=== PATIENT | female | born 1950 | race Caucasian/White ===

== ENCOUNTER 2023-08-20 08:57 | Outpatient (OUT) | payer MEDICARE, SELFPAY ==
[2023-08-20 09:41] LABS: Basophils Absolute Auto 0.1 10^3/uL (0.0-0.1); Eosinophils Absolute Auto 0.5 10^3/uL (0.0-0.7); Hematocrit 37.9 % (36.0-48.0); Hemoglobin 11.6 g/dL (12.0-16.0); Immature Granulocytes Abs Auto 0.02 10^3/uL (0.00-0.03); Immature Granulocytes Pct Auto 0.3 % (0.0-0.5); Lymphocytes Absolute Auto 2.1 10^3/uL (1.2-3.8); Lymphocytes Percent Auto 31.4 % (20.5-60.0); Mean Corpuscular HGB Conc 30.6 g/dL (29.9-35.2); Mean Corpuscular Volume 101.3 fL (81.0-99.0); Mean Platelet Volume 10.4 fL (9.5-13.5); Monocytes Absolute Auto 0.7 10^3/uL (0.3-0.8); Monocytes Percent Auto 10.6 % (1.7-12.0); Neutrophils Absolute Auto 3.3 10^3/uL (1.4-6.5); Neutrophils Percent Auto 49.7 % (43.0-75.0); Platelet Count 226 10^3/uL (150-450); Red Blood Count 3.74 10^6/uL (4.20-5.40); White Blood Count 6.7 10^3/uL (4.0-11.0)
[2023-08-20 10:06] LABS: Estimated Average Glucose 117 mg/dL; Glycohemoglobin A1C 5.7 % (4.5-6.2)
[2023-08-20 10:29] LABS: Alanine Aminotransferase 21 U/L (14-59); Albumin Globulin Ratio 1.4; Albumin Level 4.2 g/dL (3.4-5.0); Alkaline Phosphatase 80 U/L (46-116); Anion Gap 14.5; Aspartate Amino Transferase 15 U/L (15-37); BUN Creatinine Ratio 23.7; Bilirubin Total 0.5 mg/dL (0.2-1.0); Calcium 9.3 mg/dL (8.5-10.1); Carbon Dioxide 28.1 mmol/L (21.0-32.0); Chloride 104 mmol/L (98-107); Chol HDL Ratio 1.6; Cholesterol 180 mg/dL (<=200); Estimated GFR (African America >60 (>=60); Estimated GFR (Non-African Ame >60 (>=60); Free T3 2.61 pg/mL (2.18-3.98); Glucose 96 mg/dL (74-106); HDL Cholesterol 112 mg/dL (40-60); Potassium 4.6 mmol/L (3.5-5.1); Sodium 142 mmol/L (136-145); Thyroid Stimulating Hormone 2.636 uIU/mL (0.358-3.740); Total Protein 7.2 g/dL (6.4-8.2); Triglycerides 39 mg/dL (<=150); VLDL CHOLESTEROL 7.8 mg/dL
== END 2023-08-20 08:58 | disposition home or self-care (01) ==
LOC: LAB 09:08
PROVIDERS: PCP Family Medicine; Visit Provider Family Medicine
DX: K91.1 Postgastric surgery syndromes (principal); K22.4 Dyskinesia of esophagus; E78.5 Hyperlipidemia, unspecified; R73.09 Other abnormal glucose; Z12.12 Encounter for screening for malignant neoplasm of rectum; D64.9 Anemia, unspecified; E55.9 Vitamin D deficiency, unspecified; R89.9 Unspecified abnormal finding in specimens from other organs, systems and tissues
CPT/HCPCS: 36415; 80053; 80061; 82306; 82607; 82746; 83036; 83540; 84436; 84443; 84481; 85025

== ENCOUNTER 2023-08-31 12:28 | Outpatient (REF) | payer MEDICARE, SELFPAY ==
[2023-08-31 15:11] LABS: Occult Blood Negative
== END 2023-08-31 12:29 | disposition home or self-care (01) ==
LOC: LAB 12:28
PROVIDERS: PCP Family Medicine; Visit Provider Family Medicine
DX: K91.1 Postgastric surgery syndromes (principal); K22.4 Dyskinesia of esophagus; E78.5 Hyperlipidemia, unspecified; R73.09 Other abnormal glucose; Z12.12 Encounter for screening for malignant neoplasm of rectum; D64.9 Anemia, unspecified; E55.9 Vitamin D deficiency, unspecified
CPT/HCPCS: G0328

== ENCOUNTER 2024-06-20 07:42 | Outpatient (OUT) | payer MEDICARE, SELFPAY ==
--- OUTSIDE RECORDS SUMMARY | 2024-06-20 07:46 | XMS_ITS | CCD ---
Author Organization [facility] Care Team Providers Care Senior Advocate Name Role Phone DR JAYLON HUMMEL Attending Unavailable KARTHIKY, DR IYER Consulting Unavailable KARTHIKY, DR IYER Primary Care Unavailable SHAHEED, DR IYER Admitting Unavailable SHAHEED, DR IYER Attending Unavailable SHAHEED, DR IYER Consulting Unavailable SHAHEED, DR IYER Primary Care Unavailable KARTHIKY, DR IYER Admitting Unavailable HOY, DR IYER Consulting Unavailable KARTHIKY, DR IYER Primary Care Unavailable SHAHEED, DR IYER Admitting Unavailable SHAHEED, DR IYER Attending Unavailable Allergies Allergy Classification Reported Allergen(s) Allergy Type Date of Onset Reaction(s) Facility (1 source) Latex Drug allergy (disorder) [facility] Repository Problems Active Problems Problem Classification Problem Date Documented Da te Episodic/Chronic Unclassified (3 sources) CONTACT W/AND (SUSP) EXPOS COVID-19; Translations: [CONTACT W/AND (SUSP) EXPOS COVID-19] Onset: 07-16-2021 Past or Other Problems Problem Classification Problem Date Documented Da te Episodic/Chronic Acute bronchitis (1 source) Acute bronchitis, unspecified; Translations: [ACUTE BRONCHITIS UNSPECIFIED] Onset: 02-21-2021 Episodic Immunizations and screening for infectious disease (4 sources) Contact with and (suspected) exposure to other viral communicable diseases; Translations: [CONTCT EXPS OTH VIRL COMMUNICABL DZ] Onset: 07-30-2020 Episodic Unclassified (1 source) CONTACT W/AND (SUSP) EXPOS COVID-19; Translations: [CONTACT W/AND (SUSP) EXPOS COVID-19] Onset: 07-12-2021 Results Test Name Value Interpretation Reference Range Facil ity Covid-19 PCR (CVDTB)on SARS-CoV-2 (COVID-19) RNA STACEY+probe Ql (Unsp spec) Not detected Normal NOT DETECTED [facility] Comment on above: Result Comment: This test is not yet venice roved or cleared by the [place] FDA. When there are no FDA-approved or cleared tests available, and other criteria are met, FDA can make tests available under an emergency access mechanism called an Emergency Use Authorization (EUA). The EUA for this test is supported by the [employer] Consultant of Health and Human Service's (HHS's) declaration that circumstances exist to justify the emergency use of in vitro diagnostics for the detection and/or diagnosis of the virus that causes COVID-19. This EUA will remain in effect (meaning this test can be used) for the duration of the COVID-19 declaration justifying emergency of IVDs, unless it is terminated or revoked by FDA (after which the test may no longer be used). When diagnostic testing is negative, the possibility of a false negative should be considered in the context of a patient's recent exposures and the presence of clinical signs and symptoms consistent with SARS-CoV-2. Performed By: #### C VDTB #### [facility] [address] [place] [address] Dr. Zoltan Upton Covid-19 PCR ([facility]on 02-02 Sample Type Test performed using RT-PCR from a nasopharyngeal collected specimen. Normal [facility] Comment on above: Performed By: #### CVDTBH #### [facility] [address] [place] [address] Stu Montoya SARS-CoV-2 (COVID-19) RNA STACEY+probe Ql (Unsp spec) Not detected Normal NOT DETECTED [facility] Comment on above: Result Comment: This test is not yet venice roved or cleared by the [place] FDA. When there are no FDA-approved or cleared tests available, and other criteria are met, FDA can make tests available under an emergency access mechanism called an Emergency Use Authorization (EUA). The EUA for this test is supported by the [place] of Health and Human Service's (HHS's) declaration that circumstances exist to justify the emergency use of in vitro diagnostics for the detection and/or diagnosis of the virus that causes COVID-19. This EUA will remain in effect (meaning this test can be used) for the duration of the COVID-19 declaration justifying emergency of IVDs, unless it is terminated or revoked by FDA (after which the test may no longer be used). When diagnostic testing is negative, the possibility of a false negative should be considered in the context of a patient's recent exposures and the presence of clinical signs and symptoms consistent with SARS-CoV-2. Performed By: #### C VDTBH #### [facility] [address] [place], [place] [address] Stu Montoya COVID-19 PCRon 08-01-2020 SARS-CoV-2 (COVID-19) RNA STACEY+probe Ql (Unsp spec) Not detected Normal Not Detected [facility] Comment on above: Result Comment: This nucleic acid amplif ication test was developed and its performance characteristics determined by [employer]. Nucleic acid amplification tests include PCR and TMA. This test has not been FDA cleared or approved. This test has been authorized by FDA under an Emergency Use Authorization (EUA). This test is only authorized for the duration of time the declaration that circumstances exist justifying the authorization of the emergency use of in vitro diagnostic tests for detection of SARS-CoV-2 virus and/or diagnosis of COVID-19 infection under section 564(b)(1) of the Act, 21 U.S.C. 360bbb-3(b) (1), unless the authorization is terminated or revoked sooner. When diagnostic testing is negative, the possibility of a false negative result should be considered in the context of a patient's recent exposures and the presence of clinical signs and symptoms consistent with COVID-19. An individual without symptoms of COVID-19 and who is not shedding SARS-CoV-2 virus would expect to have a negative (not detected) result in this assay. Performed By: #### C VDPCR #### [facility] [address] [place], [place] [address] Stu Haleyen Encounters Encounter Date Encounter Type Care Provider Facility Start: 07-12-2021 End: 07-12-[address] JAYLON HUMMEL Facility:[facility]1 Start: 02-18-2021 End: 02-19-[address] JAYLON HUMMEL Facility:[facility]1 Start: 07-30-2020 End: 07-31-[address] JAYLON HUMMEL Facility:H1 Payers Date Payer Category Payer Medicare [id number] 1950 Unknown [id number] 2.16.84 [id number] 1950 Unknown [id number] 2.16.84 [id number] 1950 Unknown [id number] [id number] [id number] Summary Purpose Family History No Family History Records Found Advance Directives No Advanced Directives Records Found Additional Source Comments INFORMATION SOURCE (unrecogn ized section and content) DATE CREATED AUTHOR 07/17/2021 The [facility] FOR RECORDS PERTAINING TO PATIENTS WHO ARE OR HAVE BEEN ENROLLED IN A CHEMICAL DEPENDENCY/SUBSTANCEABUSE PROGRAM, SOME INFORMATION MAY BE OMITTED. This clinical summary was aggregated from multiple sources. Caution should be exercised in using it in the provision of clinical care. This summary normalizes information from multiple sources, and as a consequence, information in this document may materially change the coding, format and clinical context of patient data. In addition, data may be omitted in some cases. CLINICAL DECISIONS SHOULD BE BASED ON THE PRIMARY CLINICAL RECORDS. [facility] [employer] [facility]. provides no warranty or guarantee of the accuracy or completeness of information in this document.
[2024-06-20 08:22] LABS: Basophils Absolute Auto 0.1 10^3/uL (0.0-0.1); Basophils Percent Auto 1.1 % (0.2-2.0); Eosinophils Absolute Auto 0.2 10^3/uL (0.0-0.7); Eosinophils Percent Auto 3.3 % (0.9-7.0); Hemoglobin 11.3 g/dL (12.0-16.0); Immature Granulocytes Abs Auto 0.02 10^3/uL (0.00-0.03); Immature Granulocytes Pct Auto 0.4 % (0.0-0.5); Lymphocytes Absolute Auto 1.9 10^3/uL (1.2-3.8); Lymphocytes Percent Auto 34.8 % (20.5-60.0); Mean Corpuscular HGB Conc 31.4 g/dL (29.9-35.2); Mean Corpuscular Hemoglobin 31.2 pg (26.7-34.0); Mean Corpuscular Volume 99.4 fL (81.0-99.0); Mean Platelet Volume 10.3 fL (9.5-13.5); Monocytes Absolute Auto 0.6 10^3/uL (0.3-0.8); Monocytes Percent Auto 11.7 % (1.7-12.0); Neutrophils Absolute Auto 2.7 10^3/uL (1.4-6.5); Neutrophils Percent Auto 48.7 % (43.0-75.0); Platelet Count 213 10^3/uL (150-450); Red Blood Count 3.62 10^6/uL (4.20-5.40); Red Cell Distribution Width 17.3 % (11.0-15.0); White Blood Count 5.5 10^3/uL (4.0-11.0)
[2024-06-20 08:53] LABS: Estimated Average Glucose 108 mg/dL; Glycohemoglobin A1C 5.4 % (4.5-6.2)
[2024-06-20 09:16] LABS: Alanine Aminotransferase 28 U/L (14-59); Albumin Globulin Ratio 1.4; Albumin Level 3.7 g/dL (3.4-5.0); Alkaline Phosphatase 70 U/L (46-116); Anion Gap 10.5; Aspartate Amino Transferase 21 U/L (15-37); BUN Creatinine Ratio 22.6; Bilirubin Total 0.4 mg/dL (0.2-1.0); Calcium 8.9 mg/dL (8.5-10.1); Carbon Dioxide 29.5 mmol/L (21.0-32.0); Chloride 107 mmol/L (98-107); Chol HDL Ratio 1.6; Cholesterol 170 mg/dL (<=200); Estimated GFR (African America >60 (>=60); Estimated GFR (Non-African Ame >60 (>=60); Free T3 2.58 pg/mL (2.18-3.98); Globulin 2.7 g/dL; Glucose 93 mg/dL (74-106); HDL Cholesterol 104 mg/dL (40-60); Sodium 143 mmol/L (136-145); Thyroid Stimulating Hormone 4.169 uIU/mL (0.358-3.740); Total Protein 6.4 g/dL (6.4-8.2); Triglycerides 37 mg/dL (<=150); VLDL CHOLESTEROL 7.4 mg/dL
== END 2024-06-20 07:43 | disposition home or self-care (01) ==
LOC: LAB 07:43
PROVIDERS: PCP Family Medicine; Visit Provider Family Medicine
DX: B35.6 Tinea cruris (principal); N32.89 Other specified disorders of bladder; K91.1 Postgastric surgery syndromes; E78.5 Hyperlipidemia, unspecified; R53.83 Other fatigue; R73.09 Other abnormal glucose; I10 Essential (primary) hypertension; Z12.12 Encounter for screening for malignant neoplasm of rectum; D64.9 Anemia, unspecified; E03.9 Hypothyroidism, unspecified; E55.9 Vitamin D deficiency, unspecified
CPT/HCPCS: 36415; 80053; 80061; 82306; 83036; 83540; 84436; 84443; 84481; 85025

== ENCOUNTER 2024-06-21 07:36 | Outpatient (REF) | payer MEDICARE, SELFPAY ==
--- OUTSIDE RECORDS SUMMARY | 2024-06-21 07:39 | XMS_ITS | CCD ---
Author Organization [facility] Care Team Providers Care Agricultural Science Professor Name Role Phone DR JAYLON HUMMEL Attending [...] (1 source) Latex Drug allergy (disorder) [facility] Repository Problems Active Problems Problem Classification [...] spec) Not detected Normal NOT DETECTED [facility] Comment on above: Result Comment: This test is not yet venice roved or cleared by the [place] FDA. When there are no FDA-approved or cleared tests available, and other criteria are met, FDA can make tests available under an emergency access mechanism called an Emergency Use Authorization (EUA). The EUA for this test is supported by the Steward/Stewardess Economy Class of Health and Human Service's (HHS's) declaration [...] SARS-CoV-2. Performed By: #### C VDTB #### [facility] [address] [place] [address] Dr. Zoltan Upton Covid-19 PCR ([facility]on 02-02 Sample Type Test performed using RT-PCR from a nasopharyngeal collected specimen. Normal [facility] Comment on above: Performed By: #### CVDTBH #### [facility] [address] [place] [address] Stu Montoya SARS-CoV-2 (COVID-19) RNA STACEY+probe Ql (Unsp spec) Not detected Normal NOT DETECTED [facility] Comment on above: Result Comment: This test is not yet venice roved or cleared by the [place] FDA. When there are no FDA-approved or cleared tests available, and other criteria are met, FDA can make tests available under an emergency access mechanism called an Emergency Use Authorization (EUA). The EUA for this test is supported by the [place] of Health and Human Service's (HHS's) declaration [...] SARS-CoV-2. Performed By: #### C VDTBH #### [facility] [address] [place], [place] [address] Stu Montoya COVID-19 PCRon 08-01-2020 SARS-CoV-2 (COVID-19) RNA STACEY+probe Ql (Unsp spec) Not detected Normal Not Detected [facility] Comment on above: Result Comment: This nucleic acid amplif ication test was developed and its performance characteristics determined by [employer]. Nucleic acid amplification tests include PCR and [...] assay. Performed By: #### C VDPCR #### [facility] [address] [place], [place] [address] Stu Haleyen Encounters Encounter Date Encounter Type Care Provider Facility Start: 07-12-2021 End: 07-12-[address] JAYLON HUMMEL Facility:H1 Start: 02-18-2021 End: 02-19-[address] JAYLON HUMMEL Facility:[facility]1 Start: 07-30-2020 End: 07-31-[address] JAYLON HUMMEL Facility:H1 Payers Date Payer Category Payer Medicare [id number] 1950 Unknown [id number] 2.16.84 [id number] 1950 Unknown [id number] 2.16.84 [id number] 1950 Unknown [id number] 2.16.84 [id number] Summary Purpose Family History No Family History Records Found Advance Directives No Advanced Directives Records Found Additional Source Comments INFORMATION SOURCE (unrecogn ized section and content) DATE CREATED AUTHOR 07/17/2021 [facility] FOR RECORDS PERTAINING TO PATIENTS WHO ARE [...] BE BASED ON THE PRIMARY CLINICAL RECORDS. [facility]. provides no warranty or guarantee of the accuracy or completeness of information in this document.
[2024-06-21 07:55] LABS: Internal Control Within Normal Limits; Occult Blood Positive
== END 2024-06-21 07:37 | disposition home or self-care (01) ==
LOC: LAB 07:36
PROVIDERS: PCP Family Medicine; Visit Provider Family Medicine
DX: B35.6 Tinea cruris (principal); N32.89 Other specified disorders of bladder; K91.1 Postgastric surgery syndromes; E78.5 Hyperlipidemia, unspecified; R53.83 Other fatigue; R73.09 Other abnormal glucose; I10 Essential (primary) hypertension; Z12.12 Encounter for screening for malignant neoplasm of rectum; D64.9 Anemia, unspecified; E03.9 Hypothyroidism, unspecified; E55.9 Vitamin D deficiency, unspecified
CPT/HCPCS: G0328

== ENCOUNTER 2024-08-02 06:43 | Outpatient (OUT) | payer MEDICARE, SELFPAY ==
--- OUTSIDE RECORDS SUMMARY | 2024-08-02 06:48 | XMS_ITS | CCD ---
Author Organization [facility] Care Team Providers Care Sprinkling Truck Driver Name Role Phone SHAHEED, DR IYER Attending Unavailable KARTHIKY, DR IYER Consulting Unavailable SHAHEED, DR IYER Primary Care Unavailable KARTHIKY, DR IYER Admitting Unavailable HOY, DR IYER Attending Unavailable SHAHEED, DR IYER Consulting Unavailable KARTHIKY, DR IYER Primary Care Unavailable KARTHIKY, DR IYER Admitting Unavailable HOY, DR IYER Consulting Unavailable SHAHEED, DR IYER Primary Care Unavailable KARTHIKY, DR IYER Admitting Unavailable SHAHEED, DR IYER Attending Unavailable Allergies Allergy Classification Reported Allergen(s) Allergy Type Date of Onset Reaction(s) Facility (1 source) Latex Drug allergy (disorder) [facility] Repository Problems Active Problems Problem Classification Problem [...] Interpretation Reference Range Facil ity Covid-19 PCR (CVD[facility])on SARS-CoV-2 (COVID-19) RNA STACEY+probe Ql (Unsp spec) Not detected Normal NOT DETECTED [facility] Comment on above: Result Comment: This test is not yet venice roved or cleared by the [place] FDA. When there are no FDA-approved or cleared tests available, and other criteria are met, FDA can make tests available under an emergency access mechanism called an Emergency Use Authorization (EUA). The EUA for this test is supported by the [place] of Health and Human Service's (HHS's) declaration [...] SARS-CoV-2. Performed By: #### C VDTBH #### [facility] [address] [place] [address] Dr. Zoltan Upton [facility] 02-02 Sample Type Test performed using RT-PCR from a nasopharyngeal collected specimen. Normal [facility] Comment on above: Performed By: #### CVDTBH #### [facility] [address] [place] [address] Stu Montoya SARS-CoV-2 (COVID-19) RNA STACEY+probe Ql (Unsp spec) Not detected Normal NOT DETECTED [facility] Comment on above: Result Comment: This test is not yet venice roved or cleared by the [place] FDA. When there are no FDA-approved or cleared tests available, and other criteria are met, FDA can make tests available under an emergency access mechanism called an Emergency Use Authorization (EUA). The EUA for this test is supported by the [place] of Health and Human Service's (HHS's) declaration [...] SARS-CoV-2. Performed By: #### C VDTBH #### [facility] [address] [place], [place] [address] Stu Montoya COVID-19 PCRon 08-01-2020 SARS-CoV-2 (COVID-19) RNA STACEY+probe Ql (Unsp spec) Not detected Normal Not Detected [facility] Comment on above: Result Comment: This nucleic acid amplif ication test was developed and its performance characteristics determined by [employer]. Nucleic acid amplification tests include PCR and [...] assay. Performed By: #### C VDPCR #### [facility] [address] [place], [place] [address] Stu Montoya Encounters Encounter Date Encounter Type Care Provider Facility Start: 06-21-2024 ambulatory Facility:[facility] Start: 07-12-2021 End: 07-12-[address] JAYLON HUMMEL Facility:H1 Start: 02-18-2021 End: 02-19-[address] JAYLON HUMMEL Facility:[facility]1 Start: 07-30-2020 End: 07-31-[address] JAYLON HUMMEL Facility:H1 Payers Date Payer Category Payer Medicare [id number] 1950 Unknown [id number] 2.16.84 [id number] 1950 Unknown [id number] 2.16.84 [id number] 1950 Unknown [id number] 2.16.84 [id number] Summary Purpose Family History No Family History Records FoundNo Family History Records Found Advance Directives No Advanced Directives Records FoundNo Advanced Directives Records Found Additional Source Comments INFORMATION SOURCE (unrecogn ized section and content) DATE CREATED AUTHOR 07/17/2021 [facility] DATE CREATED AUTHOR 'S GMIZ KEL 06/23/2024 [facility] FOR RECORDS PERTAINING TO PATIENTS WHO ARE [...] BE BASED ON THE PRIMARY CLINICAL RECORDS. [employer] [facility]. provides no warranty or guarantee of the accuracy or completeness of information in this document.
[2024-08-02 08:10] LABS: Free T3 2.53 pg/mL (2.18-3.98); Thyroid Stimulating Hormone 3.569 uIU/mL (0.358-3.740)
== END 2024-08-02 06:44 | disposition home or self-care (01) ==
LOC: LAB 06:46
PROVIDERS: PCP Family Medicine; Visit Provider Family Medicine
DX: E03.9 Hypothyroidism, unspecified (principal)
CPT/HCPCS: 36415; 84436; 84443; 84481

== ENCOUNTER 2024-08-19 15:28 | Outpatient (OUT) | payer MEDICARE, SELFPAY ==
--- OUTSIDE RECORDS SUMMARY | 2024-08-19 15:34 | XMS_ITS | CCD ---
Author Organization [facility] Care Team Providers Care Cold Press Operator Name Role Phone DR JAYLON SALAZAR Attending Unavailable SHAHEED, DR IYER Consulting Unavailable SHAHEED, DR IYER Primary Care Unavailable SHAHEED, DR IYER Admitting Unavailable SHAHEED, DR IYER Attending Unavailable SHAHEED, DR IYER Consulting Unavailable SHAHEED, DR IYER Primary Care Unavailable SHAHEED, DR IYER Admitting Unavailable SHAHEED, DR IYER Consulting Unavailable SHAHEED, DR IYER Primary Care Unavailable SHAHEED, DR IYER Admitting Unavailable SHAHEED, DR IYER Attending Unavailable Jaylon Salazar MD Primary Care Provider [phone] JANINA WEBB Attending Unavailable JANINA WEBB Referring Unavailable Allergies Allergy Classification Reported Allergen(s) Allergy Type Date of Onset Reaction(s) Facility (1 source) Latex Drug allergy (disorder) [facility] Repository Problems Active Problems Problem Classification [...] spec) Not detected Normal NOT DETECTED [facility] Comment on above: Result Comment: This test is not yet venice roved or cleared by the [place] FDA. When there are no FDA-approved or cleared tests available, and other criteria are met, FDA can make tests available under an emergency access mechanism called an Emergency Use Authorization (EUA). The EUA for this test is supported by the [place] of Health and Human Service's (HHS's) declaration [...] SARS-CoV-2. Performed By: #### C VDTB #### [facility] [address] [place] [id number] Zoltan Upton Covid-19 PCR ([facility])on 02-02 Sample Type Test performed using RT-PCR from a nasopharyngeal collected specimen. Normal [facility] Comment on above: Performed By: #### CVDTBH #### [facility] [address] [place] [address] Stu Montoya SARS-CoV-2 (COVID-19) RNA STACEY+probe Ql (Unsp spec) Not detected Normal NOT DETECTED [facility] Comment on above: Result Comment: This test is not yet venice roved or cleared by the [place] FDA. When there are no FDA-approved or cleared tests available, and other criteria are met, FDA can make tests available under an emergency access mechanism called an Emergency Use Authorization (EUA). The EUA for this test is supported by the [place] of Health and Human Service's (HHS's) declaration [...] SARS-CoV-2. Performed By: #### C VDTBH #### [facility] [address] [place] [id number] Stu Montoya COVID-19 PCRon 08-01-2020 SARS-CoV-2 (COVID-19) RNA STACEY+probe Ql (Unsp spec) Not detected Normal Not Detected [facility] Comment on above: Result Comment: This nucleic acid amplif ication test was developed and its performance characteristics determined by [employer]. Nucleic acid amplification tests include PCR and [...] assay. Performed By: #### C VDPCR #### [facility] [address] [place] [id number] Stu Montoya Encounters Encounter Date Encounter Type Care Provider Facility Start: 08-15-2024 End: 08-15-2024 Shira flowsheet Janina Webb DO Work Phone: [facility] Start: 08-15-2024 End: 08-15-2024 Bamboo flowsheet Janina Webb DO Work Phone: [facility] Start: 08-15-2024 End: 08-15-2024 ambulatory JANINA WEBB Not Available Start: 06-21-2024 ambulatory Facility:[facility] Start: 07-12-2021 End: 07-12-[address] JAYLON SALAZAR Facility:[facility]1 Start: 02-18-2021 End: 02-19-[address] JAYLON SALAZAR Facility:[facility]1 Start: 07-30-2020 End: 07-31-[address] JAYLON SALAZAR Facility:H1 Payers Date Payer Category Payer Medicaid [employer] MEDICARE A DVANTAGE [id number] 2021 Medicare [id number] 1957 Medicare [id number] 1950 Unknown [id number] 1950 Unknown [id number] 1950 Unknown [id number] 1950 Unknown [id number] Social History Date Type Detail [facility] Start: 1950 Sex assigned at Not on file [facility] Gender identity [facility] Summary Purpose Family History No Family History Records FoundNo Family History Records FoundNo Family History Records Found Advance Directives No Advanced Directives Records FoundNo Advanced Directives Records FoundNo Advanced Directives Records Found Additional Source Comments INFORMATION SOURCE (unrecogn ized section and content) DATE CREATED AUTHOR 07/17/2021 [facility] DATE CREATED AUTHOR AUTHOR'S ORGANIZ ATION 06/23/2024 [facility] DATE CREATED AUTHOR AUTHOR'S ORGANIZ ATION 08/16/2024 [facility] Care Teams (unrecognized sec tion and content) Cold Press Operator Relationship Specialty Start Date End Date Jaylon Salazar MD [address] [place] [address] PCP - General Family Medicine 08/15/24 FOR RECORDS PERTAINING TO PATIENTS WHO ARE [...] BE BASED ON THE PRIMARY CLINICAL RECORDS. [employer]. provides no warranty or guarantee of the accuracy or completeness of information in this document.
== END 2024-08-19 15:29 | disposition home or self-care (01) ==
LOC: PST 15:29
PROVIDERS: PCP Family Medicine; Visit Provider Surgery
DX: Z01.818 Encounter for other preprocedural examination (principal); R19.5 Other fecal abnormalities

== ENCOUNTER 2024-08-23 08:32 | Day surgery (SDC) | payer MEDICARE, SELFPAY ==
[2024-08-23 08:52] VITALS: BP 133/75; PULSE 79; TEMP 36.2; O2SAT 99; BMI 22.1; BMI 27.4
[2024-08-23] MEDS: 0.9 % SODIUM CHLORIDE 500 ML 50 ML IV (09:11)
--- NOTE | 2024-08-23 10:05 | P.ON_ITS ---
Date of procedure: 08/23/24 Pre-op diagnosis: blood per rectum Post-op diagnosis: other (transverse and descending colon diverticulosis, receding external hemorrhoid/ sentinel pile ) Procedure: Previous colonoscopy: 2019 procedure: diagnostic colonoscopy The patient was given IV conscious sedation.? The patient's SPO2 remained above 90% throughout the procedure. The colonoscope was inserted per rectum and advanced under direct vision to the cecum without difficulty.? The prep was goo d.? Findings: Terminal ileum os: normal Cecum/Ascending colon: normal Transverse colon: normal aside for mild diverticulosis Descending/Sigmoid colon: normal aside for mild diverticulosis Rectum/Anus: examined in normal and retroflexed positions and was normal aside for a receding external hemorrhoid/ sentinel pile Withdrawal Time was (minutes): 12 The colon was decompressed and the scope was removed.? The patient tolerated the procedure well. Recommendations/Plan: 1.? Lifestyle and dietary modifications as discussed 2.? F/U in 10 years 3.? Discussed with the family Anesthesia: MAC Surgeon: Lg Webb Estimated blood loss (mL): 0 Pathology: none sent Condition: stable Disposition: PACU
[2024-08-23 10:26] VITALS: BP 99/45; PULSE 66; TEMP 36.2; O2SAT 97
[2024-08-23 10:41] VITALS: BP 106/63; PULSE 72; O2SAT 98
[2024-08-23 10:56] VITALS: BP 114/69; PULSE 57; O2SAT 98
== END 2024-08-23 10:56 | disposition home or self-care (01) ==
PROVIDERS: PCP Family Medicine; Visit Provider Surgery
PROC: (CPT 45378; principal; 2024-08-23 10:00)
DX: K62.5 Hemorrhage of anus and rectum (principal); K64.4 Residual hemorrhoidal skin tags; K57.30 Diverticulosis of large intestine without perforation or abscess without bleeding
CPT/HCPCS: 45378; J2704